=== PATIENT | female | born 1975 | race African-American/Black ===

== ENCOUNTER 2018-07-13 19:19 | Emergency (ER) | payer OTHER ==
[2018-07-13 19:24] VITALS: BP 100/67; PULSE 72; TEMP 97.9; BMI 21.4
--- NOTE | 2018-07-13 19:24 | PDOC ---
History of Present Illness - General Chief Complaint: Nausea/Vomiting Stated Complaint: NAUSEA / VOMITTING Time Seen by Provider: 07/13/18 19:21 - History of Present Illness Initial Comments: 07/13/18 19:21 Ms. Thompson is a 42 yo female w/ pmh of pre-dm who presents for evaluation of generalized abdominal pain w/ nausea and vomiting. Patient reports she was at her normal health until approximately noon when she began to slowly have symptoms. Patient endorses eating liver for breakfast and thinks this may have lead to her symptoms. No sick contacts and no one else is sick at home. Patient also reports smoking "a blunt" this morning however does not believe this to have contributed to symptoms as she reports being an "experienced user." Patient also endorses minimal loss of urine and mild diarrhea in conjunction with her forceful vomiting today. The patient denies chest pain, shortness of breath, headache and dizziness. Denies fever, chills, and constipation. Denies dysuria, frequency, urgency and hematuria. Past History - Past Medical History Allergies/Adverse Reactions: Allergies Allergy/AdvReac Type Severity Reaction Status Date / Time Penicillins Allergy Verified 07/13/18 19:21 Home Medications: Ambulatory Orders Melatonin 5 mg PO DAILY 07/13/18 Psychiatric Problems: Yes (BIPOLAR, DEPRESSION) - Suicide/Smoking/Psychosocial Hx Smoking History: Current every day smoker Number of Cigarettes Smoked Daily: 10 'Breaking Loose' booklet given: 03/29/13 Hx Alcohol Use: No Substance Use Type: None Review of Systems - Review of Systems Comments:: 07/13/18 19:24 GENERAL/CONSTITUTIONAL: No fever or chills. No weakness. HEAD, EYES, EARS, NOSE AND THROAT: No change in vision. No ear pain or discharge. No sore throat. CARDIOVASCULAR: No chest pain or shortness of breath RESPIRATORY: No cough, wheezing, or hemoptysis. GASTROINTESTINAL: +N/V w/ mild diarrhea as described. Last BM 1 day ago. Generalized abdominal pain. GENITOURINARY: No dysuria, frequency, or change in urination. MUSCULOSKELETAL: No joint or muscle swelling or pain. No neck or back pain. SKIN: No rash NEUROLOGIC: No headache, vertigo, loss of consciousness, or change in strength/ sensation. ENDOCRINE: No increased thirst. No abnormal weight change HEMATOLOGIC/LYMPHATIC: No anemia, easy bleeding, or history of blood clots. ALLERGIC/IMMUNOLOGIC: No hives or skin allergy. *Physical Exam - Physical Exam Comments: 07/13/18 19:24 GENERAL: Awake, alert, and fully oriented, in no acute distress HEAD: No signs of trauma, normocephalic, atraumatic EYES: PERRLA, EOMI, sclera anicteric, conjunctiva clear ENT: Auricles normal inspection, hearing grossly normal, nares patent, oropharynx clear without exudates. Moist mucosa NECK: Normal ROM, supple, no lymphadenopathy, JVD, or masses LUNGS: No distress, speaks full sentences, clear to auscultation bilaterally HEART: Regular rate and rhythm, normal S1 and S2, no murmurs, rubs or gallops, peripheral pulses normal and equal bilaterally. ABDOMEN: +Generalized abdominal pain. Soft, normoactive bowel sounds. No guarding, no rebound. No masses EXTREMITIES: Normal inspection, Normal range of motion, no edema. No clubbing or cyanosis. NEUROLOGICAL: Cranial nerves II through XII grossly intact. Normal speech, normal gait, no focal sensorimotor deficits SKIN: Warm, Dry, normal turgor, no rashes or lesions noted. ED Treatment Course - LABORATORY CBC & Chemistry Diagram: 07/13/18 20:00 07/13/18 20:00 Medical Decision Making - Medical Decision Making 07/14/18 00:38 Ms. Thompson is a 42 yo female w/ pmh as described who presents for evaluation of symptoms of diffuse abdominal pain w/ nausea and vomiting concerning for appendicitis vs. gastritis vs. cannabinoid hyperemesis. Patient evaluated with labs as below and given enti-emetics for symptomatic relief. Patient continued to have pain / N/V so CT abd/pelvis ordered for further evaluation. Patient had large BM while in ED and reported some improvement of symptoms. CT abdomen/ pelvis read as negative for acute process. Patient still experiencing symptoms however elected to leave AMA. Patient counseled to return if any change in status or new symptoms. *DC/Admit/Observation/Transfer Diagnosis at time of Disposition: Abdominal pain Qualifiers: Abdominal location: unspecified location Qualified Code(s): R10.9 - Unspecified abdominal pain - Discharge Dispostion Disposition: HOME - Referrals Referrals: Bj Casarez DO [Staff Physician] - - Patient Instructions Printed Discharge Instructions: DI for Vomiting -- Adult Additional Instructions: you should return for persistant vomiting, abdominal pain or any concerns. your ct results are normal. your labs are also normal including basicblood counts, liver test pancreatic test, and electrolytes and kidney function. your urine shows dehydration. you can follow up with your primary doctor. understand you are leaving against medical advice. - Post Discharge Activity
[2018-07-13] MEDS ORDERED: SODIUM CHLORIDE 1,000 ML IV STA ×2 (19:35→20:15)
[2018-07-13] MEDS ORDERED: ONDANSETRON 4 MG/2 ML VIAL IVPUSH ONE ×2 (19:35→20:48)
[2018-07-13] MEDS ORDERED: METOCLOPRAMIDE HCL INJECTION 10 MG/2 ML VIAL IVPB ONE (19:36)
[2018-07-13] MEDS ORDERED: METOCLOPRAMIDE HCL INJECTION 10 MG/2 ML VIAL ONE (19:41)
[2018-07-13] MEDS ORDERED: ACETAMINOPHEN 1000 MG/100 ML VIAL (NON FORMULARY) IVPB ONE (19:54)
[2018-07-13 20:09] LABS: BASO % 0.5 % (0-2.0); EOS % 0.1 % (0-4.5); HEMATOCRIT 39.8 % (32.4-45.2); HEMOGLOBIN 12.7 GM/dL (10.7-15.3); LYMPH % 19.3 % (8-40); MEAN CELL VOLUME 84.5 fl (80-96); MEAN PLT VOLUME 8.8 fl (7.5-11.1); MONO % 7.8 % (3.8-10.2); NEUT % 72.3 % (42.8-82.8); PLATELET COUNT 191 K/MM3 (134-434); RBC 4.71 M/mm3 (3.60-5.2); RDW 14.5 % (11.6-15.6); WHITE BLOOD COUNT 6.9 K/mm3 (4.0-10.0)
[2018-07-13] MEDS ORDERED: ACETAMINOPHEN INJECTION 100 ML IVPB ONE (20:10)
[2018-07-13 20:12] LABS: PH,URINE >= 9.0 (5.0-8.0); URINE APPEARANCE TURBID; URINE BILIRUBIN NEGATIVE (NEGATIVE); URINE COLOR YELLOW; URINE GLUCOSE (UA) NEGATIVE (NEGATIVE); URINE KETONE 4+ (NEGATIVE); URINE LEUK ESTERASE NEGATIVE (NEGATIVE); URINE NITRITE NEGATIVE (NEGATIVE); URINE PROTEIN TRACE (NEGATIVE)
[2018-07-13 20:43] LABS: ALBUMIN 4.2 g/dl (3.4-5.0); BILIRUBIN,TOTAL 0.3 mg/dL (0.2-1); CALCIUM 9.5 mg/dL (8.5-10.1); CREATININE 0.8 mg/dL (0.55-1.3); POTASSIUM 3.9 mmol/L (3.5-5.1); TOT PROT 7.3 g/dl (6.4-8.2)
[2018-07-13] MEDS ORDERED: FAMOTIDINE 20 MG/50 ML IVPB 20 MG/50 ML MG IVPB ONE ×2 (20:49→20:51)
[2018-07-13] MEDS ORDERED: ONDANSETRON 4 MG/2 ML VIAL ONE (20:51)
--- NOTE | 2018-07-13 20:57 | PDOC ---
Documentation entered by Kelsea Baker SCRIBE, acting as scribe for Emma Villalta MD. Emma Villalta MD: This documentation has been prepared by the Olivia jeffries Daisy, SCRIBE, under my direction and personally reviewed by me in its entirety. I confirm that the documentation accurately reflects all work, treatment, procedures, and medical decision making performed by me. Attending Attestation - Resident Resident Name: Efra Marques - ED Attending Attestation I have performed the following: I have examined & evaluated the patient, The case was reviewed & discussed with the resident, I agree w/resident's findings & plan - HPI HPI: 07/13/18 19:52 The patient is a 42YOF with no PMH who presents to the ER with diffuse abdominal pain, nausea and NB, NB vomiting today. She reports smoking weed this morning. She also notes she ate liver for breakfast this morning. Denies cp, sob, fever, chills, urinary symptoms or bowel changes. Penicillins: Allergies 07/13/18 20:53 pt states she has had several nonbloody nonbilious episodes of emesis today. no sick contacts. no h/o similar episode in past except related to bad food 2007. no prior abd surgeries. no f/c . no vertigo. no urinary complaint. - Physicial Exam PE: 07/13/18 20:53 awake alert lungs clear bilaterally heart rrr no mrg abd soft nt nd ext wwp no edema. no skin rash, warm and dry. alert oriented x 3. - Medical Decision Making 07/13/18 20:54 42 yo F with c/o n/v after smoking weed, eating bad fod nontender abd exam differential gastritis, hyperemesis of thc use, dehydration, electrolyte abnoramlity pancreatitis, . plan labs ivf antiemetics. 07/14/18 00:[address] a/p unremarkable. noted possible periportal edema. however exam relativly nontender. pt lft normal. involuting cyst left ovary. pt stil with nausea and vomiting. refusing more zofran or antiemetics. recommend admission for intractable n/v. pt refusing requesting iv to be removed and dc home.
[2018-07-14] MEDS ORDERED: ONDANSETRON 4 MG/2 ML VIAL IVPUSH ONE (00:15)
== END 2018-07-14 00:45 | disposition left against medical advice (07) ==
LOC: JER 19:19
PROC: 3E033GC Introduction of Other Therapeutic Substance into Peripheral Vein, Percutaneous Approach (ICD-10-PCS; principal; 2018-07-13)
PROC: 3E033NZ Introduction of Analgesics, Hypnotics, Sedatives into Peripheral Vein, Percutaneous Approach (ICD-10-PCS; 2018-07-13)
PROC: 3E033GC Introduction of Other Therapeutic Substance into Peripheral Vein, Percutaneous Approach (ICD-10-PCS; 2018-07-13)
DX: R10.9 Unspecified abdominal pain (principal)
CPT/HCPCS: 36415; 74177-TC; 80053; 81003; 82962; 83690; 84703; 85025; 87086; 96365; 96375; 99282-25; J0131; J7030

== ENCOUNTER 2018-08-18 14:34 | Emergency (ER) | payer OTHER ==
[2018-08-18 14:50] VITALS: BP 147/80; PULSE 70; TEMP 98.5; BMI 20.5
--- NOTE | 2018-08-18 15:26 | PDOC ---
History of Present Illness - General Chief Complaint: Pain Stated Complaint: RT ARM PAIN Time Seen by Provider: 08/18/18 15:14 - History of Present Illness Initial Comments: 08/18/18 15:21 43-year-old female without comorbidities presents for evaluation of right shoulder pain 2 weeks without any precipitating trauma no systemic symptoms Past History - Past Medical History Allergies/Adverse Reactions: Allergies Allergy/AdvReac Type Severity Reaction Status Date / Time Penicillins Allergy Verified 08/18/18 14:45 Home Medications: Ambulatory Orders Melatonin 5 mg PO DAILY 07/13/18 Ibuprofen [Motrin -] 600 mg PO TID #30 tablet 08/18/18 COPD: No Psychiatric Problems: Yes (BIPOLAR, DEPRESSION) - Suicide/Smoking/Psychosocial Hx Smoking History: Current every day smoker Number of Cigarettes Smoked Daily: 20 Information on smoking cessation initiated: No 'Breaking Loose' booklet given: 03/29/13 Hx Alcohol Use: No Drug/Substance Use Hx: No Substance Use Type: None Review of Systems - Review of Systems Constitutional: No: Fever Musculoskeletal: Yes: Joint Pain *Physical Exam - Vital Signs Last Vital Signs Temp Pulse Resp BP Pulse Ox 98.5 F 70 18 147/80 100 08/18/18 14:46 08/18/18 14:46 08/18/18 14:46 08/18/18 14:46 08/18/18 14:46 - Physical Exam Comments: 08/18/18 15:24 Right shoulder skin color and temperature are normal range of motion is full and nonpainful. 5 out of 5 strength in supraspinatus isolation internal and external rotation. Negative impingement maneuvers positive speeds O'Vinicio's test negative Spurling no gross sensory motor deficits neurovascular intact. Medical Decision Making - Medical Decision Making 08/18/18 15:24 Right shoulder strain I suspect a degenerative labral tear to have her follow- up with orthopedic *DC/Admit/Observation/Transfer Diagnosis at time of Disposition: Shoulder strain - Discharge Dispostion Disposition: HOME Condition at time of disposition: Stable Decision to Admit order: No - Prescriptions Prescriptions: Ibuprofen [Motrin -] 600 mg PO TID #30 tablet - Referrals Referrals: Timbo Restrepo DO [Staff Physician] - - Patient Instructions Additional Instructions: Please use the Motrin as directed. One tablet 3 times a day with food. Discontinue the medication if it bothers her stomach. Return to the emergency room for worsening symptoms. Follow-up with orthopedic surgery in one to 2 days for further evaluation and treatment options. Follow-up without fail. - Post Discharge Activity
== END 2018-08-18 15:31 | disposition home or self-care (01) ==
LOC: JERFT 14:34
DX: S46.811A Strain of other muscles, fascia and tendons at shoulder and upper arm level, right arm, initial encounter (principal); X58.XXXA Exposure to other specified factors, initial encounter; Y93.89 Activity, other specified; Y92.89 Other specified places as the place of occurrence of the external cause; Y99.8 Other external cause status
CPT/HCPCS: 99281-25